=== PATIENT | male | born 1965 | race Caucasian/White ===

== ENCOUNTER 2016-07-13 04:58 | Emergency (ER) | payer OTHER ==
[~2016-07-13] VITALS: Ht 170.2 cm; Wt 79.4 kg
[2016-07-13 05:23] VITALS: BP 154/47
--- NOTE | 2016-07-13 05:46 | ED HAND/WRIST INJURY COMPLAINT ---
History of Present Illness General Chief Complaint: General Adult Stated Complaint: "MIDDLE RT FINGER S/P SMASH FINGER AT WORK" Source: patient Exam Limitations: no limitations Vital Signs & Intake/Output Vital Signs & Intake/Output Vital Signs Date Time Temp Pulse Resp B/P B/P Pulse O2 O2 Flow FiO2 Mean Ox Delivery Rate 07/14 523 98 Room Air 07/13 522 98.3 79 18 154/47 97 Room Air Allergies Coded Allergies: NO KNOWN ALLERGIES (07/13/16) Reconcile Medications Ibuprofen 800 MG TABLET 1 TAB PO TID PRN pain Oxycodone HCl/Acetaminophen (Percocet 5-325 MG Tablet) 5 MG-325 MG TABLET 1 TAB PO 4XDP PRN PAIN six...[id number] Triage Note: PT FROM HOME C/O RIGHT MIDDLE FINGER LAC. PT WAS AT WORK AROUND 0230 PT SMASHED RIGHT MIDDLE FINGER WHEN A TOOL ROLLED OVER ONTO IT. PT HAS DEFORMITY AND PAIN SCALE 8/10. PTS VSS. Triage Nurses Notes Reviewed? yes Occurred: this morning Duration: hour(s): Timing: single episode today Injury Environment: work Severity: moderate Pain/Injury Location: Right: 3rd finger. Context: crush Method of Injury: direct blow Modifying Factors: Worsens With: movement. Associated Symptoms: swelling HPI: 41-year-old gentleman presents with right middle finger swelling and pain. He states that he was at work and was carrying tools. He states that 2 tools smashed the tip of this finger. He notes swelling and pain and bruising on the tip of his finger. He has no other injury. He is otherwise well. Past History Travel History Traveled to [place] past 21 day No Medical History Any Pertinent Medical History? see below for history Neurological: NONE EENT: NONE Cardiovascular: NONE Respiratory: NONE Gastrointestinal: NONE Hepatic: NONE Renal: NONE Musculoskeletal: NONE Psychiatric: NONE Endocrine: NONE Blood Disorders: NONE Cancer(s): NONE CLINIC SPECIALIST/Reproductive: NONE Tetanus Vaccine: 12/02/14 Surgical History Surgical History: non-contributory Psychosocial History What is your primary language Ethiopian Tobacco Use: Never used ETOH Use: occasional use Family History Hx Contributory? No Review of Systems Review of Systems Constitutional: Reports: no symptoms. EENTM: Reports: no symptoms. Respiratory: Reports: no symptoms. Cardiovascular: Reports: no symptoms. GI: Reports: no symptoms. Genitourinary: Reports: no symptoms. Musculoskeletal: Reports: no symptoms. Skin: Reports: no symptoms. Neurological/Psychological: Reports: no symptoms. Hematologic/Endocrine: Reports: no symptoms. Immunologic/Allergic: Reports: no symptoms. All Other Systems: Reviewed and Negative Physical Exam Physical Exam General Appearance: well developed/nourished, mild distress Head: atraumatic, normal appearance Eyes: Bilateral: normal appearance. Ears, Nose, Throat: normal ENT inspection Neck: normal inspection Hand Left: normal inspection, normal range of motion Hand Right: 3rd finger, distal end of the right third digit reveals swelling and ecchymosis. There is also a subungual hematoma that is tender to palpation. No sign of infection. No sign of dislocation. Progress Differential Diagnosis: contusion, dislocation, fracture, sprain, subungual hematoma Plan of Care: Orders Procedure Date/time Status EKG 07/14 503 Active Diagnostic Imaging: Viewed by Me: Radiology Read. Discussed w/RAD: Radiology Read. Radiology Impression: FINGER XRAY - COMMINUTED DISTAL TUFT FX... NO SIGNIFICANT DISPLACEMENT Comments: PATIENT: GILLIAN CLAY PRESENT AGE: 51 PATIENT ACCOUNT NO: [id number] : 69 LOCATION: [facility] ORDERING PHYSICIAN: NAZANIN GUZMÁN MD SERVICE DATE: 07/13/16 EXAM TYPE: RAD - XRY-FINGERS, RIGHT EXAMINATION: XR FINGER, RIGHT CLINICAL INFORMATION: Right third digit trauma COMPARISON: None TECHNIQUE: Three views of the right hand third digit. FINDINGS: There is a comminuted fracture of the tuft of the right hand third digit distal phalanx. No significant displacement of the fracture fragments. Soft tissue swelling is present. Alignment is otherwise anatomic. Joint spaces are maintained. IMPRESSION: Comminuted fracture of the tuft of the third digit distal phalanx without significant displacement of fracture fragments. DICTATED BY: FLOR DE LEON MD DATE/TIME DICTATED:07/13/16609 INSPECTOR [employer] COMMODITIES:ANUPAMA DATE/TIME TRANSCRIBED:07/13/16609 CONFIDENTIAL, DO NOT COPY WITHOUT APPROPRIATE AUTHORIZATION. <Electronically signed in Other Vendor System> SIGNED BY: FLOR DE LEON MD 07/1316 Departure Departure Disposition: HOME OR SELF CARE Condition: Stable Clinical Impression Primary Impression: Closed fracture of tuft of distal phalanx of finger Secondary Impressions: Subungual hematoma of digit of hand Referrals: PATIENT HAS NO PRIMARY CARE DR (PCP/Family) Departure Forms: Customer Survey General Discharge Information Prescriptions: Current Visit Scripts Oxycodone HCl/Acetaminophen (Percocet 5-325 MG Tablet) 1 TAB PO 4XDP PRN PAIN #6 TAB six...[id number] Ibuprofen 1 TAB PO TID PRN pain #30 TAB Procedures Splinting Location: distal tuft of right 3rd digit Pre-Made Type: velcro Splint: distal tuft Splint Applied By: splint applied by ak Pre-Proc Neuro Vasc Exam: normal Post-Proc Neuro Vasc Exam: normal Progress: electrocautery of sub ungal hematoma of 3rd digit. excellent result. reduction in pain.
[2016-07-13] MEDS ORDERED: PERCOCET 5-3251 EACH PO (06:11)
[2016-07-13] MEDS ORDERED: IBUPROFEN800 M1 PO (06:11)
--- NOTE | 2016-07-13 06:16 | RADIOLOGY REPORT ---
EXAMINATION: XR FINGER, RIGHT CLINICAL INFORMATION: Right third digit trauma COMPARISON: None TECHNIQUE: Three views of the right hand third digit. FINDINGS: There is a comminuted fracture of the tuft of the right hand third digit distal phalanx. No significant displacement of the fracture fragments. Soft tissue swelling is present. Alignment is otherwise anatomic. Joint spaces are maintained. IMPRESSION: Comminuted fracture of the tuft of the third digit distal phalanx without significant displacement of fracture fragments.
== END 2016-07-13 06:44 ==
LOC: ERH 04:58
DX: S62.632A Displaced fracture of distal phalanx of right middle finger, initial encounter for closed fracture (principal); S60.131A Contusion of right middle finger with damage to nail, initial encounter; W23.0XXA Caught, crushed, jammed, or pinched between moving objects, initial encounter; Y92.9 Unspecified place or not applicable; Y93.9 Activity, unspecified
CPT/HCPCS: 73140-RT